=== PATIENT | male | born 1960 | race Caucasian/White ===

== ENCOUNTER 2022-04-17 20:58 | Inpatient (IN) ==
[2022-04-17] MEDS ORDERED: methylPREDNISolone 125 MG/2 ML VIAL IVP ONE (21:10)
[2022-04-17] MEDS ORDERED: cefTRIAXone 1,000 MG in 0.9 % Sodium Chloride 10 ML IVP ONE (21:10)
[2022-04-17] MEDS ORDERED: Azithromycin 500 MG in 0.9 % Sodium Chloride 250 ML IVPB ONE (21:10)
[2022-04-17] MEDS ORDERED: Ipratropium/Albuterol Neb 3 ML IH ONE (21:11)
[2022-04-17] MEDS ORDERED: 0.9 % Sodium Chloride 1,000 ML ONE (21:17)
[2022-04-17] MEDS ORDERED: Iopamidol - 370 500 ML MLS IVP ONE (21:35)
[2022-04-17 21:41] LABS: Basophils % 0.1 %
[2022-04-17 21:43] LABS: Eosinophils % 0.1 %; Hematocrit 19.4 % (37.5-50.1); Immature Granulocytes % 2.2 % (0-4); Lymphocytes # 0.4 K/mcL (0.6-4.6); Lymphocytes % 1.3 %; Mean Corpuscular HGB Conc 25.8 g/dL (31.6-35.5); Mean Corpuscular Hemoglobin 16.9 pg (28.0-33.3); Mean Corpuscular Volume 65.8 fL (83.0-100.0); Mean Platelet Volume 10.9 fL (9.4-12.4); Monocytes # 1.3 K/mcL (0.0-1.3); Monocytes % 4.4 %; Neutrophils # 26.3 K/mcL (1.6-8.9); Nucleated Red Blood Cells 1.7 /100 WBC (0); Platelet Count 254 K/mcL (140-400); Red Blood Count 2.95 M/mcL (4.19-5.50); Red Cell Distribution Width 20.1 % (11.5-14.5); Segmented Neutrophils % 91.9 %; White Blood Count 28.6 K/mcL (4.3-11.1)
[2022-04-17 21:48] LABS: Hypochromasia Present (Not Present); Microcytosis Present (Not Present)
[2022-04-17] MEDS: 0.9 % Sodium Chloride 1,000 ML IVC SCH ×2 (21:59→22:34)
[2022-04-17 22:02] LABS: Calcium 7.8 mg/dL (8.6-10.3); Potassium 4.5 mEq/L (3.5-5.1)
[2022-04-17] MEDS ORDERED: 0.9 % Sodium Chloride 500 ML ONE (22:05)
[2022-04-17 22:10] LABS: Troponin I 1.94 ng/mL (< 0.04)
[2022-04-17] MEDS: Norepinephrine 4 MG/254 ML IV.SOLN IVC SCH (22:16)
[2022-04-17 22:22] LABS: Influenza A PCR Negative (Negative); Influenza B PCR Negative (Negative); Resp. Syncytial Virus PCR Negative (Negative)
[2022-04-17 22:28] LABS: SARS-CoV-2 by PCR (In House) Positive (Negative)
[2022-04-17] MEDS ORDERED: Vancomycin 1,250 MG/262.5 ML IV.SOLN IVPB ONE (23:00)
[2022-04-17] MEDS ORDERED: Piperacillin/Tazobactam 3.375 GM in 0.9 % Sodium Chloride Mini Bag 100 ML IVPB ONE (23:00)
[2022-04-18] MEDS ORDERED: Naloxone 0.4 MG/ML INJ IVP PRN ×2 (00:53→15:22)
[2022-04-18] MEDS: 0.9 % Sodium Chloride 1,000 ML IVC SCH ×3 (01:57→15:42)
[2022-04-18] MEDS: Calcium Gluconate 1gm/50mL 1 GM/50 ML BAG IVPB SCH ×2 (02:51→03:31)
[2022-04-18] MEDS ORDERED: *HR* LORazepam 2 MG/ML VIAL IVP PRN ×6 (03:37→15:22)
[2022-04-18] MEDS ORDERED: D5% in Water 1,000 ML IVC PRN ×2 (03:39→15:22)
[2022-04-18] MEDS ORDERED: *HR* Dextrose 50 % in Water (Syg) 50 ML SYRINGE IVP PRN ×2 (03:39→15:22)
[2022-04-18] MEDS ORDERED: Dextrose Gel 15 GM/37.5 ML TUBE PO PRN ×4 (03:39→15:22)
[2022-04-18 05:23] LABS: Nucleated Red Blood Cells 0.4 /100 WBC (0)
[2022-04-18 05:25] LABS: Hematocrit 24.7 % (37.5-50.1); Hemoglobin 6.8 g/dL (12.9-16.9); INR 1.5; Immature Platelets 12.3 % (1.1-6.1); Mean Corpuscular HGB Conc 27.5 g/dL (31.6-35.5); Mean Corpuscular Hemoglobin 19.1 pg (28.0-33.3); Mean Corpuscular Volume 69.4 fL (83.0-100.0); Platelet Count 233 K/mcL (140-400); Prothrombin Time 17.1 Seconds (9.4-12.1); Red Blood Count 3.56 M/mcL (4.19-5.50)
[2022-04-18 05:28] LABS: Activated Partial Thrombo Time 28.3 Seconds (26.0-36.0)
[2022-04-18 05:31] LABS: White Blood Count 46.9 K/mcL (4.3-11.1)
[2022-04-18 05:40] LABS: Acetaminophen < 10 mcg/mL (10-20); Albumin/Globulin Ratio 1.1 (1.1-2.2); Alkaline Phosphatase 130 Units/L (34-104); BUN/Creatinine Ratio 12 (6-26); Bilirubin,Direct 0.4 mg/dL (0.0-0.2); Bilirubin,Indirect 0.3 mg/dL (0.0-1.0); Bilirubin,Total 0.7 mg/dL (0.3-1.0); Blood Urea Nitrogen 44 mg/dL (6-20); Calcium 7.5 mg/dL (8.6-10.3); Carbon Dioxide 19 mEq/L (23-29); Chloride 98 mEq/L (98-107); Ethanol < 10 mg/dL (Less than 10); Globulin 2.8 g/dL (2.4-3.5); Glucose 189 mg/dL (70-105); Iron < 10 mcg/dL (65-175); Lipase 27 Units/L (11-82); Magnesium 1.7 mg/dL (1.6-2.6); Osmolality,Calculated 282 (280-300); Phosphorous 6.4 mg/dL (2.7-4.5); Potassium 4.8 mEq/L (3.5-5.1); Salicylate < 2.5 mg/dL (15.0-30.0); Sodium 128 mEq/L (136-145); Total Protein 5.8 g/dL (6.4-8.9); Transferrin 222 mg/dL (203-362); Troponin I 1.72 ng/mL (< 0.04); eGFR For African Americans 22 (> 60); eGFR For Non-African Americans 18 (> 60)
[2022-04-18 06:15] LABS: Alanine Aminotransferase 1060 Units/L (7-52); Aspartate Amino Transferase 2007 Units/L (13-39)
[2022-04-18 06:16] LABS: Lymphocytes # 4.7 K/mcL (0.6-4.6); Monocytes # 1.9 K/mcL (0.0-1.3); Neutrophils # 40.3 K/mcL (1.6-8.9)
[2022-04-18 06:17] LABS: Platelet Estimate Normal (Normal)
[2022-04-18] MEDS: Insulin LISPRO 300 UNITS/3 ML VIAL SUBQ SCH ×3 (06:21→17:28)
[2022-04-18 06:30] LABS: Bilirubin,Urine Negative (Negative); Blood,Urine Moderate (Negative); Clarity,Urine Turbid (Clear); Color,Urine Yellow (Yellow); Glucose,Urine (UA) Normal (Normal); Granular Casts,Urine Few per lpf (None Seen); Hyaline Casts,Urine Few per lpf (None Seen); Ketones,Urine Negative (Negative); Leukocyte Esterase,Urine Negative (Negative); Mucus,Urine Few per lpf (None-Few); Nitrite,Urine Negative (Negative); Protein,Urine 70 mg/dL (Neg-Trace); Specific Gravity,Urine > 1.030 (1.010-1.025); Sperm,Urine Present per hpf (None Seen); Urobilinogen,Urine Normal (Normal)
[2022-04-18] MEDS ORDERED: Pantoprazole 40 MG VIAL IVP SCH (07:45)
[2022-04-18] MEDS ORDERED: Piperacillin/Tazobactam 3.375 GM in 0.9 % Sodium Chloride Mini Bag 100 ML IVPB SCH ×2 (08:00→21:00)
[2022-04-18] MEDS ORDERED: 0.9 % Sodium Chloride 250 ML IVC SCH ×2 (08:30→15:22)
[2022-04-18] MEDS ORDERED: 0.9 % Sodium Chloride 250 ML ONE (08:45)
[2022-04-18] MEDS ORDERED: Ringers Solution, Lactated 1,000 ML IVC SCH (10:00)
[2022-04-18] MEDS ORDERED: 0.9 % Sodium Chloride 1,000 ML IVC SCH (12:15)
[2022-04-18 13:49] LABS: Hematocrit 28.9 % (37.5-50.1); Hemoglobin 8.1 g/dL (12.9-16.9)
[2022-04-18 14:26] LABS: Immature Platelets 11.5 % (1.1-6.1); Mean Corpuscular HGB Conc 27.9 g/dL (31.6-35.5); Mean Corpuscular Hemoglobin 19.4 pg (28.0-33.3); Mean Corpuscular Volume 69.4 fL (83.0-100.0); Nucleated Red Blood Cells 0.8 /100 WBC (0); Platelet Count 256 K/mcL (140-400); Red Blood Count 4.18 M/mcL (4.19-5.50)
[2022-04-18 14:33] LABS: White Blood Count 45.4 K/mcL (4.3-11.1)
[2022-04-18 14:57] LABS: Albumin 3.3 g/dL (3.5-5.7); Albumin/Globulin Ratio 0.9 (1.1-2.2); Bilirubin,Total 0.7 mg/dL (0.3-1.0); Calcium 7.9 mg/dL (8.6-10.3); Globulin 3.5 g/dL (2.4-3.5); Potassium 4.9 mEq/L (3.5-5.1); Total Protein 6.8 g/dL (6.4-8.9)
[2022-04-18 15:33] LABS: Monocytes # 0.5 K/mcL (0.0-1.3); Neutrophils # 44.5 K/mcL (1.6-8.9)
[2022-04-18 15:35] LABS: Anisocytosis 2+ (Not Present); Hypochromasia Present (Not Present); Macrocytosis Present (Not Present); Microcytosis Present (Not Present); Platelet Estimate Normal (Normal)
[2022-04-18] MEDS: Pantoprazole 40 MG VIAL IVP SCH (17:24)
[2022-04-18] MEDS: Piperacillin/Tazobactam 3.375 GM in 0.9 % Sodium Chloride Mini Bag 100 ML IVPB SCH ×2 (17:24→23:25)
[2022-04-18] MEDS ORDERED: Thiamine (B-1) 100 MG, Folic Acid 1 MG, MVI, adult with vitamin K 10 ML in 0.9 % Sodi... IVPB SCH (18:00)
[2022-04-18] MEDS: Thiamine (B-1) 100 MG, Folic Acid 1 MG, MVI, adult with vitamin K 10 ML in 0.9 % Sodi... IVPB SCH (18:06)
[2022-04-18] MEDS: Gabapentin 400 MG CAPSULE PO SCH (22:14)
[2022-04-18] MEDS: traZODone 50 MG TABLET PO SCH (22:14)
[2022-04-19] MEDS: Insulin LISPRO 300 UNITS/3 ML VIAL SUBQ SCH ×4 (00:19→18:05)
[2022-04-19] MEDS: 0.9 % Sodium Chloride 1,000 ML IVC SCH ×2 (01:12→13:00)
[2022-04-19] MEDS ORDERED: Ipratropium/Albuterol Neb 3 ML IH PRN (01:27)
[2022-04-19] MEDS ORDERED: Ipratropium 1 PUFF INHALER IH PRN (01:49)
[2022-04-19 02:05] LABS: Red Cell Distribution Width 22.6 % (11.5-14.5)
[2022-04-19 02:07] LABS: Hematocrit 26.9 % (37.5-50.1); Hemoglobin 7.6 g/dL (12.9-16.9); Immature Platelets 10.9 % (1.1-6.1); Mean Corpuscular HGB Conc 28.3 g/dL (31.6-35.5); Mean Corpuscular Hemoglobin 19.8 pg (28.0-33.3); Mean Corpuscular Volume 70.1 fL (83.0-100.0); Platelet Count 236 K/mcL (140-400); Red Blood Count 3.84 M/mcL (4.19-5.50)
[2022-04-19 02:17] LABS: White Blood Count 40.6 K/mcL (4.3-11.1)
[2022-04-19 02:46] LABS: Alanine Aminotransferase 1008 Units/L (7-52); Albumin 3.1 g/dL (3.5-5.7); Albumin/Globulin Ratio 0.9 (1.1-2.2); Alkaline Phosphatase 142 Units/L (34-104); Aspartate Amino Transferase 1186 Units/L (13-39); BUN/Creatinine Ratio 28 (6-26); Bilirubin,Total 0.6 mg/dL (0.3-1.0); Blood Urea Nitrogen 39 mg/dL (6-20); Calcium 7.8 mg/dL (8.6-10.3); Carbon Dioxide 26 mEq/L (23-29); Chloride 102 mEq/L (98-107); Globulin 3.3 g/dL (2.4-3.5); Glucose 125 mg/dL (70-105); Magnesium 1.9 mg/dL (1.6-2.6); Osmolality,Calculated 287 (280-300); Potassium 4.8 mEq/L (3.5-5.1); Sodium 133 mEq/L (136-145); Total Protein 6.4 g/dL (6.4-8.9); eGFR For African Americans > 60 (> 60); eGFR For Non-African Americans 52 (> 60)
[2022-04-19] MEDS: Pantoprazole 40 MG VIAL IVP SCH ×2 (05:31→18:04)
[2022-04-19 08:11] LABS: Vancomycin,Random 13 mcg/mL
[2022-04-19] MEDS: Piperacillin/Tazobactam 3.375 GM in 0.9 % Sodium Chloride Mini Bag 100 ML IVPB SCH ×2 (09:32→16:07)
[2022-04-19] MEDS: Gabapentin 400 MG CAPSULE PO SCH ×3 (09:32→20:36)
[2022-04-19] MEDS ORDERED: Magnesium Sulfate 1 GM/102 ML PIGGYBACK IVPB ONE (13:42)
[2022-04-19] MEDS: Thiamine (B-1) 100 MG, Folic Acid 1 MG, MVI, adult with vitamin K 10 ML in 0.9 % Sodi... IVPB SCH (18:04)
[2022-04-19] MEDS: Metoprolol XL (24 HR) Succ 25 MG TAB.ER.24H PO SCH (20:35)
[2022-04-19] MEDS: traZODone 50 MG TABLET PO SCH (20:36)
[2022-04-20] MEDS: Piperacillin/Tazobactam 3.375 GM in 0.9 % Sodium Chloride Mini Bag 100 ML IVPB SCH ×4 (00:28→23:45)
[2022-04-20] MEDS: Insulin LISPRO 300 UNITS/3 ML VIAL SUBQ SCH ×4 (00:29→19:03)
[2022-04-20] MEDS: Pantoprazole 40 MG VIAL IVP SCH ×2 (05:05→19:03)
[2022-04-20] MEDS: Norepinephrine 4 MG/254 ML IV.SOLN IVC SCH (05:16)
[2022-04-20] MEDS: 0.9 % Sodium Chloride 1,000 ML IVC SCH ×2 (05:17→11:23)
[2022-04-20 05:23] LABS: Hemoglobin 7.2 g/dL (12.9-16.9)
[2022-04-20 05:25] LABS: Hematocrit 26.5 % (37.5-50.1); Immature Platelets 9.8 % (1.1-6.1); Mean Corpuscular HGB Conc 27.2 g/dL (31.6-35.5); Mean Corpuscular Hemoglobin 19.4 pg (28.0-33.3); Mean Corpuscular Volume 71.2 fL (83.0-100.0); Mean Platelet Volume 10.7 fL (9.4-12.4); Red Blood Count 3.72 M/mcL (4.19-5.50); Red Cell Distribution Width 23.1 % (11.5-14.5); White Blood Count 29.7 K/mcL (4.3-11.1)
[2022-04-20 05:45] LABS: Alanine Aminotransferase 693 Units/L (7-52); Albumin 3.1 g/dL (3.5-5.7); Alkaline Phosphatase 132 Units/L (34-104); Aspartate Amino Transferase 406 Units/L (13-39); BUN/Creatinine Ratio 33 (6-26); Bilirubin,Total 0.6 mg/dL (0.3-1.0); Blood Urea Nitrogen 25 mg/dL (6-20); Carbon Dioxide 31 mEq/L (23-29); Chloride 102 mEq/L (98-107); Glucose 126 mg/dL (70-105); Magnesium 2.3 mg/dL (1.6-2.6); Osmolality,Calculated 290 (280-300); Potassium 4.7 mEq/L (3.5-5.1); Sodium 137 mEq/L (136-145); Total Protein 6.1 g/dL (6.4-8.9); eGFR For African Americans > 60 (> 60); eGFR For Non-African Americans > 60 (> 60)
[2022-04-20 07:59] LABS: Hepatitis B Surface Antigen Nonreactive (Nonreactive)
[2022-04-20 08:29] LABS: Hepatitis B Core IgM Nonreactive (Nonreactive)
[2022-04-20 08:30] LABS: Hepatitis A Antibody IgM Nonreactive (Nonreactive); Hepatitis C Virus Antibody Nonreactive (Nonreactive)
[2022-04-20] MEDS: Metoprolol XL (24 HR) Succ 25 MG TAB.ER.24H PO SCH ×2 (11:24→20:59)
[2022-04-20] MEDS: Gabapentin 400 MG CAPSULE PO SCH ×3 (11:24→20:59)
[2022-04-20 12:02] LABS: Hematocrit 27.1 % (37.5-50.1); Hemoglobin 7.5 g/dL (12.9-16.9)
[2022-04-20 12:23] LABS: Kappa Qnt Free Light Chains 112.4 mg/L (3.30-19.40); Lambda Qnt Free Light Chains 115.83 mg/L (5.71-26.30)
[2022-04-20] MEDS ORDERED: *HR* Heparin 5,000 UNIT/ML VIAL IVP ONE (12:34)
[2022-04-20] MEDS ORDERED: *HR* Heparin 5,000 UNIT/ML VIAL IVP PRN (12:34)
[2022-04-20] MEDS: Heparin 25,000UNIT/250ML 1/2NS 25,000 UNIT/250 ML IV.SOLN IVC SCH (14:29)
[2022-04-20] MEDS ORDERED: Acetaminophen 325 MG TABLET PO PRN (14:47)
[2022-04-20] MEDS: hydrOXYzine pamoate 25 MG CAPSULE PO SCH ×2 (15:05→22:07)
[2022-04-20] MEDS: Thiamine (B-1) 100 MG, Folic Acid 1 MG, MVI, adult with vitamin K 10 ML in 0.9 % Sodi... IVPB SCH (19:12)
[2022-04-20] MEDS: traZODone 50 MG TABLET PO SCH (20:59)
[2022-04-20] MEDS: *HR* Heparin 5,000 UNIT/ML VIAL IVP PRN (21:25)
[2022-04-21] MEDS: Insulin LISPRO 300 UNITS/3 ML VIAL SUBQ SCH ×5 (01:20→23:33)
[2022-04-21 04:55] LABS: Hematocrit 26.9 % (37.5-50.1); Hemoglobin 7.3 g/dL (12.9-16.9); Immature Platelets 9.8 % (1.1-6.1); Mean Corpuscular HGB Conc 27.1 g/dL (31.6-35.5); Mean Corpuscular Hemoglobin 19.6 pg (28.0-33.3); Mean Corpuscular Volume 72.3 fL (83.0-100.0); Platelet Count 194 K/mcL (140-400); Red Blood Count 3.72 M/mcL (4.19-5.50); Red Cell Distribution Width 23.7 % (11.5-14.5); White Blood Count 20.7 K/mcL (4.3-11.1)
[2022-04-21] MEDS: Pantoprazole 40 MG VIAL IVP SCH ×2 (05:24→18:26)
[2022-04-21] MEDS: Heparin 25,000UNIT/250ML 1/2NS 25,000 UNIT/250 ML IV.SOLN IVC SCH (05:25)
[2022-04-21 05:29] LABS: Alanine Aminotransferase 543 Units/L (7-52); Albumin 3.1 g/dL (3.5-5.7); Alkaline Phosphatase 121 Units/L (34-104); Aspartate Amino Transferase 205 Units/L (13-39); BUN/Creatinine Ratio 33 (6-26); Bilirubin,Total 0.7 mg/dL (0.3-1.0); Blood Urea Nitrogen 22 mg/dL (6-20); Carbon Dioxide 29 mEq/L (23-29); Chloride 102 mEq/L (98-107); Globulin 3.2 g/dL (2.4-3.5); Glucose 138 mg/dL (70-105); Osmolality,Calculated 288 (280-300); Potassium 4.3 mEq/L (3.5-5.1); Sodium 136 mEq/L (136-145); Total Protein 6.3 g/dL (6.4-8.9); eGFR For African Americans > 60 (> 60); eGFR For Non-African Americans > 60 (> 60)
[2022-04-21] MEDS: *HR* Heparin 5,000 UNIT/ML VIAL IVP PRN ×2 (05:42→12:14)
[2022-04-21] MEDS ORDERED: Iopamidol - 370 500 ML MLS IVP ONE (07:55)
[2022-04-21] MEDS ORDERED: Vancomycin 1,250 MG/262.5 ML IV.SOLN IVPB SCH (08:00)
[2022-04-21] MEDS: Piperacillin/Tazobactam 3.375 GM in 0.9 % Sodium Chloride Mini Bag 100 ML IVPB SCH ×3 (09:45→23:02)
[2022-04-21] MEDS: Metoprolol XL (24 HR) Succ 25 MG TAB.ER.24H PO SCH ×2 (09:46→20:11)
[2022-04-21] MEDS: Gabapentin 400 MG CAPSULE PO SCH ×3 (09:46→20:11)
[2022-04-21] MEDS: hydrOXYzine pamoate 25 MG CAPSULE PO SCH ×2 (09:47→20:11)
[2022-04-21] MEDS: Vancomycin 1,250 MG/262.5 ML IV.SOLN IVPB SCH ×2 (11:53→22:36)
[2022-04-21] MEDS ORDERED: Simethicone 80 MG TAB.CHEW PO PRN (16:18)
[2022-04-21] MEDS: traZODone 50 MG TABLET PO SCH (20:11)
[2022-04-21 23:30] LABS: Alpha 2 Globulin (PEP) 0.98 g/dL (0.48-1.05); Beta Globulin (PEP) 0.77 g/dL (0.48-1.10)
[2022-04-22 03:27] LABS: Alanine Aminotransferase 387 Units/L (7-52); Albumin 3.1 g/dL (3.5-5.7); Alkaline Phosphatase 106 Units/L (34-104); Aspartate Amino Transferase 113 Units/L (13-39); BUN/Creatinine Ratio 25 (6-26); Bilirubin,Total 0.8 mg/dL (0.3-1.0); Blood Urea Nitrogen 18 mg/dL (6-20); Carbon Dioxide 31 mEq/L (23-29); Chloride 101 mEq/L (98-107); Glucose 125 mg/dL (70-105); Magnesium 1.8 mg/dL (1.6-2.6); Osmolality,Calculated 287 (280-300); Potassium 4.2 mEq/L (3.5-5.1); Sodium 137 mEq/L (136-145); Total Protein 6.1 g/dL (6.4-8.9); eGFR For African Americans > 60 (> 60); eGFR For Non-African Americans > 60 (> 60)
[2022-04-22 03:41] LABS: Hematocrit 25.7 % (37.5-50.1); Immature Platelets 11.7 % (1.1-6.1); Mean Corpuscular HGB Conc 27.2 g/dL (31.6-35.5); Mean Corpuscular Hemoglobin 19.8 pg (28.0-33.3); Mean Corpuscular Volume 72.6 fL (83.0-100.0); Platelet Count 161 K/mcL (140-400); Red Blood Count 3.54 M/mcL (4.19-5.50); Red Cell Distribution Width 24.3 % (11.5-14.5); White Blood Count 11.4 K/mcL (4.3-11.1)
[2022-04-22] MEDS: Pantoprazole 40 MG VIAL IVP SCH ×2 (05:06→17:48)
[2022-04-22] MEDS: Insulin LISPRO 300 UNITS/3 ML VIAL SUBQ SCH ×3 (05:07→17:41)
[2022-04-22 07:07] LABS: IFE Reflexed IFE Done; Immunoglobulin A 429 mg/dL (68-408); Immunoglobulin G 1298 mg/dL (768-1632); Immunoglobulin M 96 mg/dL (35-263)
[2022-04-22] MEDS: hydrOXYzine pamoate 25 MG CAPSULE PO SCH ×2 (07:57→20:48)
[2022-04-22] MEDS: Gabapentin 400 MG CAPSULE PO SCH ×3 (07:57→20:48)
[2022-04-22] MEDS: Metoprolol XL (24 HR) Succ 25 MG TAB.ER.24H PO SCH ×2 (07:58→20:48)
[2022-04-22] MEDS: Piperacillin/Tazobactam 3.375 GM in 0.9 % Sodium Chloride Mini Bag 100 ML IVPB SCH ×2 (08:02→15:28)
[2022-04-22] MEDS: Heparin 25,000UNIT/250ML 1/2NS 25,000 UNIT/250 ML IV.SOLN IVC SCH (11:20)
[2022-04-22] MEDS: Vancomycin 1,250 MG/262.5 ML IV.SOLN IVPB SCH (11:33)
[2022-04-22 12:15] LABS: Hematocrit 26.9 % (37.5-50.1); Hemoglobin 7.3 g/dL (12.9-16.9); Immature Platelets 11.4 % (1.1-6.1); Mean Corpuscular HGB Conc 27.1 g/dL (31.6-35.5); Mean Corpuscular Hemoglobin 19.6 pg (28.0-33.3); Mean Corpuscular Volume 72.3 fL (83.0-100.0); Mean Platelet Volume 11.1 fL (9.4-12.4); Red Blood Count 3.72 M/mcL (4.19-5.50); Red Cell Distribution Width 24.5 % (11.5-14.5); White Blood Count 12.2 K/mcL (4.3-11.1)
[2022-04-22] MEDS: traZODone 50 MG TABLET PO SCH (20:47)
[2022-04-23] MEDS: Insulin LISPRO 300 UNITS/3 ML VIAL SUBQ SCH ×5 (00:48→23:14)
[2022-04-23] MEDS: Piperacillin/Tazobactam 3.375 GM in 0.9 % Sodium Chloride Mini Bag 100 ML IVPB SCH ×2 (00:49→08:35)
[2022-04-23] MEDS: Vancomycin 1,500 MG/265 ML IV.SOLN IVPB SCH ×2 (00:49→13:39)
[2022-04-23] MEDS: Heparin 25,000UNIT/250ML 1/2NS 25,000 UNIT/250 ML IV.SOLN IVC SCH ×2 (03:05→15:13)
[2022-04-23 03:30] LABS: Basophils % 0.5 %; Eosinophils % 0.3 %; Red Cell Distribution Width 24.8 % (11.5-14.5); Segmented Neutrophils % 68.1 %
[2022-04-23 03:32] LABS: Basophils # 0.1 K/mcL (0.0-0.2); Hemoglobin 6.7 g/dL (12.9-16.9); Immature Granulocytes % 8.3 % (0-4); Immature Platelets 11.2 % (1.1-6.1); Lymphocytes # 1.3 K/mcL (0.6-4.6); Lymphocytes % 11.7 %; Mean Corpuscular HGB Conc 26.8 g/dL (31.6-35.5); Mean Corpuscular Hemoglobin 19.3 pg (28.0-33.3); Mean Corpuscular Volume 71.8 fL (83.0-100.0); Monocytes # 1.2 K/mcL (0.0-1.3); Monocytes % 11.1 %; Neutrophils # 7.3 K/mcL (1.6-8.9); Nucleated Red Blood Cells 4.1 /100 WBC (0); Platelet Count 165 K/mcL (140-400); Red Blood Count 3.48 M/mcL (4.19-5.50); White Blood Count 10.7 K/mcL (4.3-11.1)
[2022-04-23 03:44] LABS: Alanine Aminotransferase 268 Units/L (7-52); Albumin/Globulin Ratio 1.1 (1.1-2.2); Alkaline Phosphatase 94 Units/L (34-104); Aspartate Amino Transferase 52 Units/L (13-39); BUN/Creatinine Ratio 26 (6-26); Bilirubin,Total 0.8 mg/dL (0.3-1.0); Blood Urea Nitrogen 16 mg/dL (6-20); Calcium 8.3 mg/dL (8.6-10.3); Carbon Dioxide 31 mEq/L (23-29); Chloride 102 mEq/L (98-107); Globulin 2.8 g/dL (2.4-3.5); Glucose 95 mg/dL (70-105); Osmolality,Calculated 287 (280-300); Sodium 138 mEq/L (136-145); Total Protein 5.8 g/dL (6.4-8.9); eGFR For African Americans > 60 (> 60); eGFR For Non-African Americans > 60 (> 60)
[2022-04-23 04:00] LABS: Anisocytosis 2+ (Not Present); Hypochromasia Present (Not Present); Platelet Estimate Normal (Normal); Poikilocytosis 1+ (Not Present); Polychromasia 1+ (Not Present)
[2022-04-23] MEDS ORDERED: 0.9 % Sodium Chloride 250 ML IVC SCH (04:00)
[2022-04-23] MEDS: Pantoprazole 40 MG VIAL IVP SCH ×2 (05:06→17:53)
[2022-04-23] MEDS ORDERED: 0.9 % Sodium Chloride 250 ML ONE (05:23)
[2022-04-23] MEDS: Metoprolol XL (24 HR) Succ 25 MG TAB.ER.24H PO SCH ×2 (08:37→20:17)
[2022-04-23] MEDS: hydrOXYzine pamoate 25 MG CAPSULE PO SCH ×2 (08:38→20:18)
[2022-04-23] MEDS: Gabapentin 400 MG CAPSULE PO SCH ×3 (08:38→20:18)
[2022-04-23] MEDS: Vancomycin 1,250 MG/262.5 ML IV.SOLN IVPB SCH (10:06)
[2022-04-23] MEDS ORDERED: Saline Nasal Spray 44 ML BOTTLE NS PRN (10:28)
[2022-04-23] MEDS: Doxycycline 100 MG CAPSULE PO SCH ×2 (13:44→20:18)
[2022-04-23 16:24] LABS: Hematocrit 31.3 % (37.5-50.1); Hemoglobin 8.9 g/dL (12.9-16.9)
[2022-04-23] MEDS ORDERED: SODIUM CHLORIDE/NAHCO3/KCL/PEG 4,000 ML SOLN.RECON PO ONE (17:00)
[2022-04-23] MEDS: Cefdinir 300 MG CAPSULE PO SCH (20:18)
[2022-04-23] MEDS: traZODone 50 MG TABLET PO SCH (20:18)
[2022-04-24 05:00] LABS: Hemoglobin 8.6 g/dL (12.9-16.9)
[2022-04-24 05:01] LABS: Hematocrit 29.9 % (37.5-50.1); Immature Platelets 12.9 % (1.1-6.1); Mean Corpuscular HGB Conc 28.8 g/dL (31.6-35.5); Mean Corpuscular Hemoglobin 21.2 pg (28.0-33.3); Mean Corpuscular Volume 73.8 fL (83.0-100.0); Platelet Count 159 K/mcL (140-400); Red Blood Count 4.05 M/mcL (4.19-5.50); Red Cell Distribution Width 25.3 % (11.5-14.5); White Blood Count 11.4 K/mcL (4.3-11.1)
[2022-04-24] MEDS: Heparin 25,000UNIT/250ML 1/2NS 25,000 UNIT/250 ML IV.SOLN IVC SCH ×2 (05:08→18:01)
[2022-04-24 05:20] LABS: Albumin 3.2 g/dL (3.5-5.7); Albumin/Globulin Ratio 1.1 (1.1-2.2); BUN/Creatinine Ratio 16 (6-26); Bilirubin,Direct 0.3 mg/dL (0.0-0.2); Bilirubin,Indirect 0.7 mg/dL (0.0-1.0); Blood Urea Nitrogen 10 mg/dL (6-20); Calcium 8.9 mg/dL (8.6-10.3); Carbon Dioxide 31 mEq/L (23-29); Chloride 101 mEq/L (98-107); Globulin 2.9 g/dL (2.4-3.5); Glucose 77 mg/dL (70-105); Magnesium 1.7 mg/dL (1.6-2.6); Osmolality,Calculated 284 (280-300); Potassium 3.7 mEq/L (3.5-5.1); Sodium 138 mEq/L (136-145); Total Protein 6.1 g/dL (6.4-8.9)
[2022-04-24] MEDS: Insulin LISPRO 300 UNITS/3 ML VIAL SUBQ SCH ×3 (05:21→18:02)
[2022-04-24] MEDS: *HR* Heparin 5,000 UNIT/ML VIAL IVP PRN ×2 (05:31→18:42)
[2022-04-24] MEDS: Pantoprazole 40 MG VIAL IVP SCH ×2 (05:32→18:01)
[2022-04-24] MEDS: Doxycycline 100 MG CAPSULE PO SCH ×2 (09:48→20:49)
[2022-04-24] MEDS: Metoprolol XL (24 HR) Succ 25 MG TAB.ER.24H PO SCH ×2 (09:48→20:49)
[2022-04-24] MEDS: hydrOXYzine pamoate 25 MG CAPSULE PO SCH ×2 (09:48→20:48)
[2022-04-24] MEDS: Gabapentin 400 MG CAPSULE PO SCH ×3 (09:49→20:48)
[2022-04-24] MEDS: Cefdinir 300 MG CAPSULE PO SCH ×2 (09:49→20:50)
[2022-04-24] MEDS: traZODone 50 MG TABLET PO SCH (20:49)
[2022-04-25] MEDS: Insulin LISPRO 300 UNITS/3 ML VIAL SUBQ SCH ×4 (00:12→17:48)
[2022-04-25 00:47] LABS: Hemoglobin 8.5 g/dL (12.9-16.9); Mean Corpuscular Hemoglobin 21.4 pg (28.0-33.3)
[2022-04-25 00:49] LABS: Hematocrit 29.8 % (37.5-50.1); Immature Platelets 11.6 % (1.1-6.1); Mean Corpuscular HGB Conc 28.5 g/dL (31.6-35.5); Mean Corpuscular Volume 74.9 fL (83.0-100.0); Platelet Count 161 K/mcL (140-400); Red Blood Count 3.98 M/mcL (4.19-5.50); Red Cell Distribution Width 26.4 % (11.5-14.5); White Blood Count 10.9 K/mcL (4.3-11.1)
[2022-04-25 01:04] LABS: BUN/Creatinine Ratio 12 (6-26); Blood Urea Nitrogen 7 mg/dL (6-20); Calcium 8.6 mg/dL (8.6-10.3); Carbon Dioxide 31 mEq/L (23-29); Chloride 102 mEq/L (98-107); Glucose 104 mg/dL (70-105); Magnesium 1.7 mg/dL (1.6-2.6); Osmolality,Calculated 284 (280-300); Potassium 3.4 mEq/L (3.5-5.1); Sodium 138 mEq/L (136-145)
[2022-04-25] MEDS: Heparin 25,000UNIT/250ML 1/2NS 25,000 UNIT/250 ML IV.SOLN IVC SCH (02:56)
[2022-04-25] MEDS: Pantoprazole 40 MG VIAL IVP SCH ×2 (05:14→17:46)
[2022-04-25] MEDS ORDERED: Magnesium Sulfate 1 GM/102 ML PIGGYBACK IVPB ONE (06:45)
[2022-04-25] MEDS: Gabapentin 400 MG CAPSULE PO SCH ×3 (08:46→20:05)
[2022-04-25] MEDS: hydrOXYzine pamoate 25 MG CAPSULE PO SCH ×2 (08:46→20:03)
[2022-04-25] MEDS: Metoprolol XL (24 HR) Succ 25 MG TAB.ER.24H PO SCH ×2 (08:46→20:03)
[2022-04-25] MEDS ORDERED: *HR* OxyCODONE Immed Rel 5 MG TABLET PO PRN (13:25)
[2022-04-25] MEDS ORDERED: Promethazine 6.25 MG in Water for inj. (sterile) 20 ML IVPB PRN (13:25)
[2022-04-25] MEDS ORDERED: *HR* HYDROmorphone PF 0.5 MG/0.5 ML SYRINGE IVP PRN (13:25)
[2022-04-25] MEDS ORDERED: Ondansetron 4 MG/2 ML VIAL IVP PRN (13:25)
[2022-04-25] MEDS ORDERED: *HR* Norepinephrine 4 MG/4 ML VIAL IVC ONE (14:08)
[2022-04-25] MEDS ORDERED: *HR* Vasopressin 20 UNIT/ML VIAL ONE (14:08)
[2022-04-25] MEDS ORDERED: *HR* Propofol 200 MG/20 ML VIAL IVP ONE (14:12)
[2022-04-25] MEDS ORDERED: *HR* Rocuronium Bromide 50 MG/5 ML VIAL ONE (14:12)
[2022-04-25] MEDS ORDERED: *HR* Succinylcholine 200 MG/10 ML VIAL IVP ONE (14:12)
[2022-04-25] MEDS ORDERED: Lidocaine HCL 4 ML Topical Solution (Laryng-O-Jet Kit Sterile Pak) TP ONE (14:14)
[2022-04-25] MEDS ORDERED: EPHEDrine 50 MG/ML VIAL ONE (14:34)
[2022-04-25] MEDS ORDERED: Ondansetron 4 MG/2 ML VIAL ONE (14:56)
[2022-04-25] MEDS: traZODone 50 MG TABLET PO SCH (20:03)
[2022-04-26] MEDS: Insulin LISPRO 300 UNITS/3 ML VIAL SUBQ SCH ×3 (00:24→14:27)
[2022-04-26] MEDS: Heparin 25,000UNIT/250ML 1/2NS 25,000 UNIT/250 ML IV.SOLN IVC SCH (04:56)
[2022-04-26] MEDS: Pantoprazole 40 MG VIAL IVP SCH (05:05)
[2022-04-26 05:30] LABS: Mean Corpuscular HGB Conc 27.8 g/dL (31.6-35.5)
[2022-04-26 05:37] LABS: Hematocrit 31.6 % (37.5-50.1); Hemoglobin 8.8 g/dL (12.9-16.9); Mean Corpuscular Hemoglobin 21.7 pg (28.0-33.3); Platelet Count 123 K/mcL (140-400); Red Blood Count 4.05 M/mcL (4.19-5.50); Red Cell Distribution Width 28.3 % (11.5-14.5); White Blood Count 9.6 K/mcL (4.3-11.1)
[2022-04-26 05:47] LABS: BUN/Creatinine Ratio 13 (6-26); Blood Urea Nitrogen 9 mg/dL (6-20); Calcium 8.6 mg/dL (8.6-10.3); Carbon Dioxide 30 mEq/L (23-29); Chloride 102 mEq/L (98-107); Glucose 128 mg/dL (70-105); Magnesium 1.9 mg/dL (1.6-2.6); Osmolality,Calculated 282 (280-300); Sodium 136 mEq/L (136-145)
[2022-04-26] MEDS: Metoprolol XL (24 HR) Succ 25 MG TAB.ER.24H PO SCH (08:57)
[2022-04-26] MEDS: Gabapentin 400 MG CAPSULE PO SCH (08:59)
[2022-04-26] MEDS: hydrOXYzine pamoate 25 MG CAPSULE PO SCH (09:00)
[2022-04-26 11:45] VITALS: BP 149/82; PULSE 68; TEMP 97.7
[2022-04-26] MEDS: Nystatin SUSP 5 ML UD.LIQ PO SCH ×2 (14:26→14:27)
[2022-04-26] MEDS ORDERED: Apixaban 5 MG TABLET PO SCH (15:00)
[2022-04-26 15:59] VITALS: O2SAT 95
== END 2022-04-26 16:59 | disposition home or self-care (01) | DRG 720 ==
LOC: ICNU 20:58 → EMEROOARM 20:58 → ICNU 04-18 00:30 → SUATTDRO 04-18 01:06 → 3NENU 04-18 16:21
PROVIDERS: ADMIT Internal Medicine; ATTEND Student in an Organized Health Care Education/Training Program